=== PATIENT | male | born 1960 | race Two or more races ===

== ENCOUNTER 2017-02-27 07:43 | Emergency (ER) | payer MEDICAID ==
[~2017-02-27] VITALS: Ht 167.6 cm; Wt 68.0 kg
--- NOTE | 2017-02-27 07:50 | NUR ---
BIBRA FROM HOME DT LEFT SHOULDER PAIN POSS. DISLOCATION SP FALL LAST NIGHT. MD AT BS FOR EVAL. VSS. SAFETY AND COMFORT MEASURES PROVIDED. WILL MONITOR.
[2017-02-27] MEDS ORDERED: HYDROCODONE/APAP 5/325MG 1 EACH TABLET ONE (07:55)
[2017-02-27] MEDS ORDERED: KETOROLAC TROMETHAMINE INJ 30 MG/ML VIAL ONE (07:55)
[2017-02-27] MEDS ORDERED: KETOROLAC TROMETHAMINE INJ 30 MG/ML VIAL IM ONE (08:00)
[2017-02-27] MEDS ORDERED: HYDROCODONE/APAP 5/325MG 1 EACH TABLET PO ONE (08:00)
--- NOTE | 2017-02-27 08:00 | NUR ---
IV ACCESS STARTED. PT MEDICATED ORDERED.
[2017-02-27] MEDS ORDERED: PROPOFOL 0 ML IV ONE (08:07)
[2017-02-27] MEDS ORDERED: MORPHINE SULFATE INJ 4 MG/ML DISP.SYRIN ONE (08:07)
[2017-02-27] MEDS ORDERED: ONDANSETRON HCL/PF 4 MG/2 ML VIAL ONE (08:07)
--- NOTE | 2017-02-27 08:10 | NUR ---
CONSENTS SIGNED FOR CLOSE REDUCTION UNDER MODERATE SEDATION. PT VERBALIZES UNDERTSANDING OF THE PROCEDURE. ALL QUESTIONS ANSWERED.
[2017-02-27] MEDS ORDERED: PROPOFOL 20 ML IV ONE (08:22)
[2017-02-27] MEDS ORDERED: ONDANSETRON HCL/PF 4 MG/2 ML VIAL IV ONE (08:30)
[2017-02-27] MEDS ORDERED: PROPOFOL 200 MG/20 ML VIAL IV ONE (08:30)
[2017-02-27] MEDS ORDERED: IV NS 0.9% 1,000 ML BAG IV ONE (08:30)
[2017-02-27] MEDS ORDERED: MORPHINE SULFATE INJ 2 MG/ML DISP.SYRIN IV ONE (08:30)
--- NOTE | 2017-02-27 08:35 | NUR ---
CLOSED REDUCTION DONE UNDER MODERATE SEDATION BY DR. HARMON. RT AT BS WELL. PT TOELRATED PROCEDURE WELL. VSS. PT [id number]. WILL CLOSELY MONITOR.
--- NOTE | 2017-02-27 09:00 | NUR ---
Patient is resting comfortably in bed with eyes closed. Easily aroused. VSS
--- NOTE | 2017-02-27 09:40 | NUR ---
IV removed. Catheter intact and site benign. Pressure and 4x4 applied to site. No bleeding noted.
[2017-02-27 09:45] VITALS: BP 139/74
--- NOTE | 2017-02-27 09:45 | NUR ---
Patient discharged to home in stable condition. Written and verbal after care instructions given. Patient verbalizes understanding of instruction.
== END 2017-02-27 09:52 | disposition home or self-care (01) ==
LOC: ER 07:46
DX: S43.015A Anterior dislocation of left humerus, initial encounter (principal); S43.035A Inferior dislocation of left humerus, initial encounter; W18.39XA Other fall on same level, initial encounter; Y93.66 Activity, soccer; Y92.89 Other specified places as the place of occurrence of the external cause; Y99.8 Other external cause status
CPT/HCPCS: 23650; 73020; 73030; 96361; 96374; 96375; 99152; 99285; A4606; J1885; J2270; J2405; J2704; J7030; Z7610

== ENCOUNTER → 2022-05-16 | Emergency (ER) | payer MEDICAID, OTHER ==
[~2022-05-16] VITALS: Ht 165.1 cm; Wt 68.0 kg
[~2022-05-16] MED LIST: ACETAMINOPHEN ES 500 MG TABLET ONE; ACETAMINOPHEN ES 500 MG TABLET PO ONE; IV NS 0.9% 1,000 ML BAG IV ONE
--- NOTE | 2022-05-16 14:43 | NUR ---
DR SU AT BEDSIDE
[2022-05-16 15:43] LABS: BASOPHILS % (AUTO) 0.4 % (0.0-2.0); EOSINOPHILS % (AUTO) 0.7 % (0.0-6.0); HEMATOCRIT 44 % (39-51); HEMOGLOBIN 14.6 g/dL (13.5-17.5); LYMPHOCYTES # (AUTO) 1.8 K/uL (0.8-4.8); LYMPHOCYTES % (AUTO) 23.4 % (20.0-44.0); MEAN CORPUSCULAR HGB CONC 33 g/dl (31.0-36.0); MEAN CORPUSCULAR VOLUME 92 fL (80-96); MONOCYTES # (AUTO) 0.6 K/uL (0.1-1.30); MONOCYTES % (AUTO) 7.8 % (2.0-12.0); NEUTROPHILS # (AUTO) 5.2 K/uL (1.8-8.9); NEUTROPHILS % (AUTO) 67.7 % (43.0-81.0); PLATELET COUNT (AUTO) 276 K/uL (150-450); RED BLOOD CELL COUNT(AUTO) 4.81 MIL/uL (4.5-6.0); WHITE BLOOD COUNT (AUTO) 7.6 K/uL (4.3-11.0)
[2022-05-16 15:49] LABS: CALCIUM, SERUM 9.2 mg/dL (8.5-10.1); CREATININE 1.4 mg/dL (0.6-1.3); POTASSIUM 4.1 mmol/L (3.5-5.1)
--- NOTE | 2022-05-16 16:07 | NUR ---
CALLED DR. TABARES LEFT .
--- NOTE | 2022-05-16 18:28 | NUR ---
IV removed. Catheter intact and site benign. Pressure and 4x4 applied to site. No bleeding noted. Patient discharged in custody of Officer Erwin [id number] of [facility] in stable condition. Written and verbal after care instructions given to [employer] officers. Patient and [employer] officers verbalizes understanding of instruction.
[2022-05-16 18:30] VITALS: BP 137/87
== END ==
LOC: ER 13:11
DX: K62.3 Rectal prolapse; N28.9 Disorder of kidney and ureter, unspecified
CPT/HCPCS: 99283; 96360; 85025; 80048; 36415; 85730; 86850; J7030